=== PATIENT | female | born 1995 | race Caucasian/White ===

== ENCOUNTER 2017-08-08 22:54 | Inpatient (IN) | payer OTHER ==
[~2017-08-08] VITALS: Ht 160 cm; Wt 85.3 kg
--- NOTE | 2017-08-08 22:54 | NUR ---
22/ BIBA C/O PROUSE VAGINAL BLEEDING. PT REPORTS SHE IS 12 WEEKS , WAS SEEN AT [facility] ON MONDAY FOR SIMILAR SYMPTOMS, DX: UNKNOWN. PT REPORTS SHE WAS SEEN BY HER OBGYN TODAY AND WAS TOLD TO GET ULTRASOUND TOMORROW, [facility] ON MONDAY FOR POSSIBLE MISCARRIAGE. VSS AT THIS TIME. REPORTS ABD CRAMPING. ; DENIES PMH/RX/OTC
--- NOTE | 2017-08-08 22:54 | NUR ---
Patient BIBA BLS, transferred to bed 1. RN evaluating patient at bedside.
[2017-08-08 23:02] VITALS: BP 105/49
--- NOTE | 2017-08-08 23:15 | NUR ---
Patient being evaluated by at bedside.
[2017-08-08 23:50] LABS: BASOPHILS # (AUTO) 0.4 K/uL (0.00-0.22); BASOPHILS % (AUTO) 3.6 % (0.0-2.0); EOSINOPHILS # (AUTO) 0.2 K/uL (0-0.4); HEMATOCRIT 40.6 % (36-48); HEMOGLOBIN 13.6 g/dL (12.0-16.0); LYMPHOCYTES # (AUTO) 2.9 K/uL (2.5-16.5); LYMPHOCYTES % (AUTO) 29.5 % (20.5-51.1); MEAN CORPUSCULAR HEMOGLOBIN 28 pg (27-31); MEAN CORPUSCULAR HGB CONC 34 g/dL (33-37); MEAN CORPUSCULAR VOLUME 85 fL (80-94); MONOCYTES # (AUTO) 0.7 K/uL (0.8-1.0); MONOCYTES % (AUTO) 7.3 % (1.7-9.3); NEUTROPHILS # (AUTO) 5.7 K/uL (1.8-7.7); NEUTROPHILS % (AUTO) 57.6 % (42.2-75.2); PLATELET COUNT (AUTO) 257 K/uL (140-450); RED BLOOD CELL COUNT(AUTO) 4.81 MIL/uL (4.20-5.40); RED CELL DISTRIBUTION WIDTH 13.2 % (11.6-13.7); WHITE BLOOD COUNT (AUTO) 9.9 K/uL (4.8-10.8)
[2017-08-08 23:55] LABS: ANION GAP 9.3 (8-16); CARBON DIOXIDE 29.5 mmol/L (21-32); CREATININE 0.8 mg/dL (0.6-1.3); POTASSIUM 3.8 mmol/L (3.5-5.1)
[2017-08-09 00:10] LABS: ALBUMIN 3.3 g/dL (3.4-5.0); THYROID STIMULATING HORMONE 1.4 uIU/mL (0.34-3.74); TOTAL BILIRUBIN 0.2 mg/dL (0.0-1.0)
[2017-08-09 00:13] LABS: PROTHROMBIN TIME 10.7 secs (10.8-13.4)
[2017-08-09] MEDS ORDERED: MORPHINE SULFATE 2 MG/ML SYR IVP ONE (00:20)
[2017-08-09] MEDS ORDERED: ONDANSETRON 4 MG/2 ML VIAL IVP PRN (02:05)
[2017-08-09] MEDS ORDERED: ACETAMINOPHEN 325 MG TAB PO PRN (02:05)
--- NOTE | 2017-08-09 02:15 | NUR ---
Patient will be admitted to care of [facility]. Admited to TELE. Will go to room 119B. Belongings list completed. BEDSIDE Report to BREANN VASQUEZ.IAN LOPEZ AND
--- NOTE | 2017-08-09 02:18 | NUR ---
PATIENT AMBULATED TO THE FLOOR
[2017-08-09 02:25] VITALS: BP 114/65
--- NOTE | 2017-08-09 02:25 | NUR ---
Admitted from ER, with chief complaint of VAGINAL BLEEDING , 22 y/o ,Female, Cooperative, AAOX4, NO S/S OF ACUTE DISTRESS. IV SITE PATENT AND INTACT. PT HAS A LARGE AMOUNT OF BRIGHT RED VAGINAL BLEEDING. PT AMBULATED TO BATHROOM, WHERE PT PASSED TWO LARGE CLOTS, SPECIMEN COLLECTED AND SENT TO LAB. TELE BOX IN PLACE. PLAN OF CARE DISCUSSED WITH PT. PT VERBALIZED UNDERSTANDING. PT oriented to call light, bed, phone,television, bathroom, smoking policy,visiting hours, procedures, ID bracelet on. Belongings list checked. CALL LIGHT WITHIN REACH. SAFETY MEASURES ENSURED. WILL CONTINUE TO MONITOR.
[2017-08-09 02:46] LABS: FREE T4 (FREE THYROXINE) 0.9 ng/dL (0.76-1.46); PHOSPHORUS 4.9 mg/dL (2.5-4.9); THYROID STIMULATING HORMONE 1.42 uIU/mL (0.34-3.74)
[2017-08-09] MEDS ORDERED: HYDROmorphone PFS 2 MG/ML SYR IVP PRN (02:50)
[2017-08-09 04:00] VITALS: BP 106/57
[2017-08-09] MEDS: NACL 0.9% 1,000 ML IV SCH ×3 (04:07→22:49)
--- NOTE | 2017-08-09 04:16 | NUR ---
PT SLEEPING IN BED. NO S/S OF ACUTE DISTRESS. WILL CONTINUE TO MONITOR.
--- NOTE | 2017-08-09 07:28 | NUR ---
PT SLEEPING IN BED. NO S/S OF ACUTE DISTRESS. PT DENIES PAIN. IV SITE PATENT AND INTACT. TELE BOX IN PLACE. PLAN OF CARE DISCUSSED. PT VERBALIZED UNDERSTANDING. WILL CONTINUE TO MONITOR.
[2017-08-09 08:00] VITALS: BP 96/58
[2017-08-09 08:05] LABS: ANION GAP 8.9 (8-16); CARBON DIOXIDE 28.7 mmol/L (21-32); CREATININE 0.7 mg/dL (0.6-1.3); POTASSIUM 3.6 mmol/L (3.5-5.1)
[2017-08-09 08:14] LABS: HEMATOCRIT 35.4 % (36-48); HEMOGLOBIN 11.9 g/dL (12.0-16.0); MEAN CORPUSCULAR HEMOGLOBIN 29 pg (27-31); MEAN CORPUSCULAR HGB CONC 34 g/dL (33-37); MEAN CORPUSCULAR VOLUME 86 fL (80-94); PLATELET COUNT (AUTO) 225 K/uL (140-450); RED BLOOD CELL COUNT(AUTO) 4.13 MIL/uL (4.20-5.40); WHITE BLOOD COUNT (AUTO) 8.8 K/uL (4.8-10.8)
--- NOTE | 2017-08-09 09:07 | NUR ---
PATIENT HAS BEEN SCREENED AND CATEGORIZED LOW NUTRITION RISK. PATIENT WILL BE SEEN WITHIN 7 DAYS OF ADMISSION. 08/15/[address]
--- NOTE | 2017-08-09 09:12 | NUR ---
REQUEST FOR RECORDS FAXED TO [place].
[2017-08-09 09:22] LABS: LYMPHOCYTES % (MANUAL) 35 % (20-46)
[2017-08-09 09:23] LABS: EOSINOPHILS % (MANUAL) 2 % (0-4); MONOCYTES % (MANUAL) 2 % (5-12)
--- NOTE | 2017-08-09 10:04 | NUR ---
ENDORSED PLAN OF CARE TO [facility]. PT STABLE.
--- NOTE | 2017-08-09 10:56 | NUR ---
RECEIVED PATIENT REPORT AT BEDSIDE. PATIENT IN BED ASLEEP. NO S/S OF DISTRESS NOTED. WILL CONTINUE TO MONITOR
[2017-08-09 12:00] VITALS: BP 102/54
--- NOTE | 2017-08-09 12:00 | NUR ---
DR WILCOX HAS SEEN THE PT. DR WILCOX IS OK WITH PT GOING HOME TODAY. OFFICE APPOINTMENT WITH DR WILCOX HAS BEEN ARRANGED FOR Monday08/14/17
[2017-08-09] MEDS ORDERED: METHYLERGONOVINE 0.2 MG TAB PO SCH (12:35)
--- NOTE | 2017-08-09 14:00 | NUR ---
CM NOTE INITIAL REVIEW FAXED TO [facility] [phone] JACOB # [phone]
[2017-08-09 15:36] LABS: BILIRUBIN,URINE 1+ (NEGATIVE); BLOOD, URINE 3+ (NEGATIVE); LEUKOCYTE ESTERASE ,URINE TRACE (NEGATIVE); NITRITE, URINE NEGATIVE (NEGATIVE); PH,URINE 6.5 (5.0-9.0); UGLUCOSE NEGATIVE (NEGATIVE)
[2017-08-09 15:42] LABS: BARBITURATE, URINE NEG. ng/ml (NEG <=200); BENZODIAZEPINE, URINE NEG. ng/mL (NEG <=200); CANNABINOID, URINE NEG. ng/mL (NEG <=50); COCAINE, URINE NEG. ng/mL (NEG <=300); OPIATE, URINE NEG. ng/mL (NEG <=2000); PHENCYCLIDINE SCREEN,URINE NEG. ng/mL (NEG <=25)
[2017-08-09 15:48] LABS: APPEARANCE,URINE BLOODY (CLEAR); COLOR,URINE RED (YELLOW)
[2017-08-09 15:56] LABS: RBC,URINE TOO NUMEROUS TO COUN /HPF (0-5); WBC,URINE 0-5 (RARE) /HPF (0-5)
[2017-08-09 16:00] VITALS: BP 100/54
[2017-08-09] MEDS ORDERED: METHYLERGONOVINE 0.2 MG TAB PO PRN (16:30)
--- NOTE | 2017-08-09 19:45 | NUR ---
RECEIVED PT IN STABLE CONDITION FROM AM NURSE. AWAKE,ALERT AND ORIENTED X4. ON TELE MONITOR. WITH NO C/O ANY PAIN. SHE SAID SLIGHT CRAMPING BUT SHE IS OK. NO VAGINAL BLEEDING AT THIS TIME. DENIES ANY BLOOD CLOTS . WITH IVF INFUSING WELL ON THE LT AC320. CLEAR AND PATENT. AMBULATORY TO BATHROOM. CALL LIGHT PLACED WITHIN EASY REACH. PLAN OF CARE DISCUSSED AND VERBALIZED UNDERSTANDING. WILL CONTINUE TO MONITOR.
--- NOTE | 2017-08-09 20:07 | NUR ---
ENDORSED PT TO NIGHT RN. NIGHT NURSE IS AWARE OF METHERGINE PRN. PT IS IN STABLE CONDITION.
[2017-08-09 20:30] VITALS: BP 94/61
--- NOTE | 2017-08-09 22:00 | NUR ---
AWAKE,WITH NO C/O OF ANY DISCOMFORT NOTED.
[2017-08-09] MEDS ORDERED: cefTRIAXone 1,000 MG VIAL ONE (22:52)
[2017-08-10 00:33] VITALS: BP 98/55
--- NOTE | 2017-08-10 02:00 | NUR ---
MADE ROUNDS. PT IS ASLEEP. NO S/S OF ANY PAIN NOTED. WILL CONTINUE TO MONITOR.
[2017-08-10 04:25] VITALS: BP 97/53
--- NOTE | 2017-08-10 05:30 | NUR ---
SLEEPING AT THIS TIME. NO S/S OF ANY DISCOMFORT NOR PAIN NOTED.
[2017-08-10 06:55] LABS: BASOPHILS # (AUTO) 0.2 K/uL (0.00-0.22); EOSINOPHILS # (AUTO) 0.2 K/uL (0-0.4); EOSINOPHILS % (AUTO) 2.8 % (0.0-4.0); HEMATOCRIT 35.7 % (36-48); HEMOGLOBIN 12.1 g/dL (12.0-16.0); LYMPHOCYTES % (AUTO) 35.5 % (20.5-51.1); MEAN CORPUSCULAR HEMOGLOBIN 29 pg (27-31); MEAN CORPUSCULAR HGB CONC 34 g/dL (33-37); MEAN CORPUSCULAR VOLUME 85 fL (80-94); MONOCYTES # (AUTO) 0.5 K/uL (0.8-1.0); MONOCYTES % (AUTO) 6.2 % (1.7-9.3); NEUTROPHILS # (AUTO) 4.5 K/uL (1.8-7.7); NEUTROPHILS % (AUTO) 53.5 % (42.2-75.2); PLATELET COUNT (AUTO) 216 K/uL (140-450); RED BLOOD CELL COUNT(AUTO) 4.18 MIL/uL (4.20-5.40); RED CELL DISTRIBUTION WIDTH 13.2 % (11.6-13.7); WHITE BLOOD COUNT (AUTO) 8.4 K/uL (4.8-10.8)
--- NOTE | 2017-08-10 07:00 | NUR ---
PT HAD X1 SCANTY VAGINAL BLEED DURING THE NIGHT . NO BLOOD CLOTS NOTED.
[2017-08-10 07:08] LABS: ANION GAP 10.9 (8-16); CREATININE 0.7 mg/dL (0.6-1.3); POTASSIUM 3.9 mmol/L (3.5-5.1)
--- NOTE | 2017-08-10 07:20 | NUR ---
RECEIVED PT REPORT FROM FLOAT TENDER NURSE. AWAKE,ALERT AND ORIENTED X4. ON TELE MONITOR. WITH NO C/O ANY PAIN. VAGINAL BLEEDING IS LESS THAN BEFORE STATED BY THE PT. DENIES ANY BLOOD CLOTS . WITH IVF INFUSING WELL ON THE LT AC G 20. CLEAR AND PATENT. AMBULATORY TO BATHROOM. CALL LIGHT PLACED WITHIN REACH. WILL CONTINUE TO MONITOR.
[2017-08-10 08:00] VITALS: BP 100/61
[2017-08-10] MEDS: NACL 0.9% 1,000 ML IV SCH (08:04)
[2017-08-10] MEDS ORDERED: LACTOBACILLUS RHAMNOSUS GG 1 EACH CAP PO SCH (09:00)
[2017-08-10] MEDS ORDERED: NITR100C7 PO (09:13)
[2017-08-10] MEDS ORDERED: LACT1.4C PO (09:13)
[2017-08-10] MEDS ORDERED: IBUP-1842 PO (09:15)
--- NOTE | 2017-08-10 11:30 | NUR ---
PT DISCHARGED PER MD ORDER. DISCHARGE INSTRUCTIONS AND MEDICATION TEACHING GIVEN. MADE PT AWARE OF FOLLOW UP APPOINTMENT. PT VERBALIZED UNDERSTANDING. IV DC'ED, TIP INTACT, PRESSURE APPLIED. PT STATED VAGINAL BLEEDING IS LESS THAN BEFORE AND NO BLOOD CLOTS. PT DENIES PAIN, N/V, AND NO RESPIRATORY DISTRESS NOTED. PT LEFT IN STABLE CONDITION AND WITH ALL HER BELONGINGS.
--- NOTE | 2017-08-10 14:28 | NUR ---
CM NOTE CONCURRENT REVIEW FAXED TO [facility] [phone] JACOB # [phone]
== END 2017-08-10 11:30 | disposition home or self-care (01) | DRG 564 ==
LOC: MED 22:54 → MTU 08-09 01:41
PROVIDERS: ADMIT Family Medicine; ATTEND Family Medicine
DX: O03.39 Incomplete spontaneous abortion with other complications (principal); N17.0 Acute kidney failure with tubular necrosis; D62 Acute posthemorrhagic anemia; E66.9 Obesity, unspecified; Z68.33 Body mass index [BMI] 33.0-33.9, adult; O23.41 Unspecified infection of urinary tract in pregnancy, first trimester; Z3A.12 12 weeks gestation of pregnancy; O25.11 Malnutrition in pregnancy, first trimester; O99.211 Obesity complicating pregnancy, first trimester; O99.011 Anemia complicating pregnancy, first trimester
CPT/HCPCS: 36415; 76801; 80048; 80053; 80305; 81001; 82150; 83036; 83690; 83735; 84100; 84439; 84443; 84702; 85025; 85610; 85730; 86886; 86900; 86901; 87081; 87086; 88305; 93005; 96374; 99285; J0696; J2270; J7030; J7060; Q0092